=== PATIENT | male | born 1965 | race American Indian/Alaskan Native ===

== ENCOUNTER 2018-08-31 10:21 | Emergency (ER) | payer SELFPAY ==
[2018-08-31 10:34] VITALS: BP 168/110
[2018-08-31] MEDS ORDERED: DELTASONE PO STA (11:19)
--- NOTE | 2018-08-31 11:47 | Emergency Department Report ---
ED Lower Extremity HPI - General Chief Complaint: Extremity Injury, Lower Stated Complaint: BILATERAL LEG PAIN Time Seen by Provider: 08/31/18 11:12 Source: patient, family Mode of arrival: Ambulatory Limitations: No Limitations - History of Present Illness Initial Comments: 53-year-old -[place] male [facility] complaining of 5-6 year histor y of bilateral knee pain. Patient states it started on his right side and has slowly begin to progress more to his left. He was seen. Bowel orthopedic about 3 years ago recommended a complete knee replacement, however, has not yet gotten the procedure that was recommended. The emergency department due to progressively worsening aches and pains and stiffness and decreased range of motion in his knees. Pain is getting worse with with standing along ambulation. No numbness or tingling. No swelling. No loss of bowel bladder. No low back pain. -: year(s) Injury: Knee: Right, Left Type of Injury: blunt Place: home Severity: mild Associated Symptoms: able to partially bear weight. denies: swelling, numbness, tingling, unable to bear weight, ambulatory - Related Data Previous Rx's Medication Instructions Recorded Last Taken Type Meloxicam 15 mg PO DAILY #14 tablet 08/31/18 Unknown Rx traMADol [Ultram] 50 mg PO Q6HR PRN #20 tablet 08/31/18 Unknown Rx Allergies Allergy/AdvReac Type Severity Reaction Status Date / Time No Known Allergies Allergy Verified 08/31/18 10:27 ED Review of Systems ROS: Stated complaint: BILATERAL LEG PAIN Other details as noted in HPI Constitutional: denies: chills, fever Eyes: denies: eye pain, eye discharge, vision change ENT: denies: ear pain, throat pain Respiratory: denies: cough, shortness of breath, wheezing Cardiovascular: denies: chest pain, palpitations Endocrine: no symptoms reported Gastrointestinal: denies: abdominal pain, nausea, diarrhea Genitourinary: denies: urgency, dysuria Musculoskeletal: arthralgia. denies: back pain, joint swelling Skin: denies: rash, lesions Neurological: denies: headache, weakness, paresthesias Psychiatric: denies: anxiety, depression Hematological/Lymphatic: denies: easy bleeding, easy bruising ED Past Medical Hx - Past Medical History Previous Medical History?: No - Surgical History Past Surgical History?: No - Social History Smoking Status: Current Every Day Smoker Substance Use Type: Alcohol - Medications Home Medications: Home Medications Medication Instructions Recorded Confirmed Last Taken Type Meloxicam 15 mg PO DAILY #14 tablet 08/31/18 Unknown Rx traMADol [Ultram] 50 mg PO Q6HR PRN #20 tablet 08/31/18 Unknown Rx ED Physical Exam - General Limitations: No Limitations General appearance: alert, in no apparent distress - Head Head exam: Present: atraumatic, normocephalic - Eye Eye exam: Present: normal appearance, PERRL, EOMI Pupils: Present: normal accommodation - ENT ENT exam: Present: normal exam, mucous membranes moist, TM's normal bilaterally, normal external ear exam - Neck Neck exam: Present: normal inspection, full ROM. Absent: tenderness, meningismus, lymphadenopathy - Respiratory Respiratory exam: Present: normal lung sounds bilaterally. Absent: respiratory distress, wheezes, rales, rhonchi, chest wall tenderness, accessory muscle use, decreased breath sounds - Cardiovascular Cardiovascular Exam: Present: regular rate, normal rhythm. Absent: systolic murmur, diastolic murmur, rubs, gallop - GI/Abdominal GI/Abdominal exam: Present: soft, normal bowel sounds - Rectal Rectal exam: Present: deferred - Extremities Exam Extremities exam: Present: normal inspection - Back Exam Back exam: Present: normal inspection - Neurological Exam Neurological exam: Present: alert, oriented X3 - Psychiatric Psychiatric exam: Present: normal affect, normal mood - Skin Skin exam: Present: warm, dry, intact, normal color. Absent: rash ED Course Vital Signs 08/31/18 10:21 Temperature 98.5 F Pulse Rate 82 Respiratory 18 Rate Blood Pressure 168/110 O2 Sat by Pulse 99 Oximetry ED Lower Extremity MDM - Radiology Data Radiology results: report reviewed Bilateral tricompartmental arthritis noted on x-rays Critical care attestation.: If time is entered above; I have spent that time in minutes in the direct care of this critically ill patient, excluding procedure time. ED Disposition Clinical Impression: Tricompartment osteoarthritis of knees, bilateral Disposition: TO HOME OR SELFCARE Is pt being admited?: No Does the pt Need Aspirin: No Condition: Stable Instructions: Osteoarthritis (ED), Knee Effusion (ED), Knee Pain (ED), Arthralgia (ED), Knee Exercises (GEN) Additional Instructions: Discussed importance of appropriate follow-up follow-up with orthopedics for definitive management of the bilateral knee issues. He understands her condition will be worsening without appropriate therapy. Also discussed compliance of his medication regimen as well Prescriptions: Meloxicam 15 mg PO DAILY #14 tablet traMADol [Ultram] 50 mg PO Q6HR PRN #20 tablet PRN Reason: Pain Referrals: NANDINI BALES MD [Staff Physician] - 3-5 Days
--- NOTE | 2018-08-31 12:20 | XRay Report ---
BILATERAL KNEES, 3 VIEWS History: Bilateral knee pain, swelling, decreased range of motion. Findings: No comparison. Bone mineralization appears normal. Moderate to severe osteoarthritic changes are identified throughout all compartments of both knees. There is no evidence for displaced fracture or bone lesion. Large bilateral joint effusions extend to the superior patellar bursa. There appears to be 2 mm metallic foreign body in the medial soft tissues of the right knee. Impression: Advanced tricompartmental osteoarthritic changes in both knees. Large bilateral joint effusions. No acute process is appreciated.
== END 2018-08-31 13:52 | disposition home or self-care (01) ==
LOC: ED 10:21
DX: M17.0 Bilateral primary osteoarthritis of knee (principal); F17.200 Nicotine dependence, unspecified, uncomplicated
CPT/HCPCS: 73562; 99283; J7512